=== PATIENT | female | born 1960 | race Caucasian/White ===

== ENCOUNTER 2024-06-09 03:57 | Emergency (ER) | payer OTHER ==
[2024-06-09] MEDS: Alum Hydroxide/Mag Hydroxide 15 ML, Lidocaine 2% 15 ML PO ONE (04:20)
[2024-06-09] MEDS: Ondansetron 4 MG Tab.DIS PO ONE (04:20)
[2024-06-09 04:30] LABS: BASOPHILS PERCENT AUTO 0.4 % (0.2-1.5); EOSINOPHILS PERCENT AUTO 0.6 % (0.6-8.1); HEMATOCRIT 37.2 % (34.2-48.2); HEMOGLOBIN 12.3 g/dL (11.4-15.5); LYMPHOCYTES ABSOLUTE AUTO 1.1 x10-3/uL (1.0-4.4); MEAN CORPUSCULAR HEMOGLOBIN 27.6 pg (23.9-33.9); MEAN CORPUSCULAR VOLUME 83.5 fL (76.7-100.5); MEAN PLATELET VOLUME 8.7 fL (7.1-12.4); MONOCYTES ABSOLUTE AUTO 0.4 x10-3/uL (0.3-1.0); MONOCYTES PERCENT AUTO 7.9 % (4.4-15.7); NEUTROPHILS ABSOLUTE AUTO 3.4 x10-3/uL (1.5-6.3); NEUTROPHILS PERCENT AUTO 68.1 % (30.8-76.2); PLATELET COUNT,PLT 218 x10(3)uL (151-488); RED BLOOD CELL COUNT 4.45 x10(6)uL (3.60-5.20); RED CELL DISTRIBUTION WIDTH 16.2 % (12.3-16.5)
[2024-06-09 04:33] LABS: BLOOD UREA NITROGEN,BUN 19 mg/dL (7-18); CALCIUM 8.7 mg/dL (8.6-10.2); CARBON DIOXIDE,CO2 27 mmol/L (21-32); CHLORIDE,CL 105 mmol/L (100-110); EST CRCL DRUG DOSING (CG) 52.49 mL/min; ESTIMATED GFR 64 mL/min (>60); GLUCOSE RANDOM 144 mg/dL (80-116); POTASSIUM,K 3.6 mmol/L (3.5-5.3); SODIUM,NA 141 mmol/L (135-145)
[2024-06-09] MEDS: Iopamidol 755 Mg/ML 100 ML Bottle IV SCH (05:20)
== END 2024-06-09 06:15 | disposition home or self-care (01) ==
LOC: FB.ED 03:57
DX: R10.13 Epigastric pain (principal); Z88.0 Allergy status to penicillin
CPT/HCPCS: 36415; 71260; 74177; 80048; 83690; 84484; 85025; 85379; 93010; 99283; 99285; A9270; Q0162; Q9967